=== PATIENT | female | born 1950 | race Caucasian/White ===

== ENCOUNTER 2016-11-10 07:24 | Emergency (ER) | payer MEDICARE, MEDICAID ==
[~2016-11-10] VITALS: Ht 160 cm; Wt 85.0 kg
[2016-11-10 07:25] VITALS: Ht 160 cm; Wt 85.0 kg
--- NOTE | 2016-11-10 08:00 | ERA ---
ER Documentation Chief Complaint Date/Time DATE: 11/10/16 TIME: 07:57 Chief Complaint KAMILLE from Dialysis Complains of SOB HPI This is a 65-year-old female with a history of hemodialysis. She was sent here from the dialysis center after being on the machine for 2 minutes. She was sent because she was having some low oxygen saturations and the patient was complaining of shortness of breath. Patient states the same thing occurred on Thursday when she had dialysis but they continued to complete the therapy. She says over the weekend she feels completely normal and did not have any chest pain or shortness of breath. She states this morning she had no shortness of breath and felt fine on arrival to the dialysis center states that the shortness of breath only started once he connected her to the dialysis machine to begin dialysis. She says this is happened before on a few occasions. Currently says she feels fine. She says she never had any chest pain and has not had a cough or other respiratory symptoms/complaints ROS All systems reviewed and are negative except as per history of present illness. Medications Home Meds Reported Medications Simvastatin (Simvastatin) 20 Mg Tablet, 20 MG PO QHS, #30 TAB 11/10/16 Nitroglycerin* (Nitrostat*) 0.4 Mg Tab.subl, 0.4 MG SL Q5MIN Y for CHEST PAIN, BOTTLE 11/10/16 Aspirin (Aspirin) 81 Mg Chew, 81 MG ORAL DAILY, #30 11/10/16 Albuterol Sulfate* (Proair HFA*) 8.5 Gm Hfa.aer.ad, 2 PUFFS INHALATION Q4H Y for SHORTNESS OF BREATH, #17 11/10/16 Hydralazine Hcl* (Hydralazine Hcl*) 100 Mg Tablet, 50 MG ORAL BID, #90 11/10/16 Discontinued Reported Medications [None ] No Conflict Check 01/11/13 Allergies Allergies: Coded Allergies: Penicillins (Verified Allergy, Unknown, 11/10/16) PMhx/Soc History of Surgery: No Anesthesia Reaction: No Hx Neurological Disorder: No Hx Respiratory Disorders: No Hx Cardiac Disorders: No Hx Psychiatric Problems: No Hx Miscellaneous Medical Probl: Yes (Dialysis) Hx Alcohol Use: No Hx Substance Use: No Hx Tobacco Use: No Smoking Status: Never smoker FmHx Family History: No coronary disease Physical Exam Vitals Vital Signs Date Time Temp Pulse Resp B/P Pulse Ox O2 Delivery O2 Flow Rate FiO2 11/10/16 11:24 79 18 98 21 11/10/16 10:30 98.3 78 20 163/104 100 Room Air 11/10/16 07:55 Nasal Cannula 2.0 11/10/16 07:53 Nasal Cannula 11/10/16 07:25 98.3 79 20 173/106 97 Physical Exam Const: Well-developed, well-nourished Head: Atraumatic, normocephalic Eyes: Normal Conjunctiva, PERRLA, EOMI, normal sclera, no nystagmus ENT: Normal External Ears, Nose and Mouth, moist mucus membranes. Neck: Full range of motion. No meningismus, no lymphadenopathy. Resp: Clear to auscultation bilaterally, no wheezing, rhonchi, rales Cardio: Regular rate and rhythm, no murmurs, S1 S2 present Abd: Soft, non tender x 4, non distended. Normal bowel sounds, no guarding or rebound, no pulsitile abdominal masses or bruits Skin: No petechiae or rashes, no ecchymosis , no maculopapular rash Back: No midline or flank tenderness Ext: No cyanosis, or edema, FROM x 4, normal inspection, neurovascularly intact x 4, right AV shunt with thrill Neur: Awake and alert, STR 5/5 x 4, sensation intact x 4, no focal findings, cerebellum intact Psych: Normal Mood and Affect Result Diagram: 11/10/16 0800 11/10/16 0800 Results 24 hrs Laboratory Tests Test 11/10/16 08:00 White Blood Count 16.810^3/ul Red Blood Count 3.7110^6/ul Hemoglobin 12.8g/dl Hematocrit 41.0% Mean Corpuscular Volume 110.5fl Mean Corpuscular Hemoglobin 34.5pg Mean Corpuscular Hemoglobin Concent 31.2g/dl Red Cell Distribution Width 15.1% Platelet Count 73086^3/UL Mean Platelet Volume 10.2fl Neutrophils % 44.0% Lymphocytes % 15.0% Monocytes % 3.0% Eosinophils % 35.0% Basophils % 3.0% Neutrophils # 7.410^3/ul Lymphocytes # 2.510^3/ul Monocytes # 0.510^3/ul Eosinophils # 5.910^3/ul Basophils # 0.510^3/ul Differential Comment MANUAL DIFF Sodium Level 139mmol/L Potassium Level 4.6mmol/L Chloride Level 99mmol/L Carbon Dioxide Level 26mmol/L Anion Gap 19 Blood Urea Nitrogen 29mg/dl Creatinine 11.03mg/dl Glucose Level 102mg/dl Calcium Level 7.9mg/dl Troponin I 0.048ng/ml Current Medications Medications (Trade) Dose Ordered Sig/Fatmata Route PRN Reason Start Time Stop Time Status Last Admin Dose Admin Albuterol (Proventil 0.083% (Neb)) 5 mg ONCE STAT NEB 11/10/16 11:01 11/10/16 11:02 DC 11/10/16 11:22 Ipratropium [place] (Atrovent 0.02% (Neb)) 0.5 mg ONCE STAT NEB 11/10/16 11:01 11/10/16 11:02 DC 11/10/16 11:22 Procedures/MDM EKG: Rate/Rhythm: Normal sinus rhythm, left axis deviation, left bundle branch block QRS, ST, QT: NORMAL MA, wide QRS, QT] Impression: Abnormal PROCEDURE: Chest x-ray CLINICAL INDICATION: Chest Pain.. TECHNIQUE: One-view frontal. COMPARISON: 01/11/2013 FINDINGS: The cardiac silhouette is normal. No infiltrates are noted. No hilar abnormalities are identified. No pneumothorax or pleural effusions are visualized. Aortic calcification/atherosclerosis is visualized. IMPRESSION: 1. No active cardiopulmonary changes. RPTAT: HGSG .Rojelio Alvarado MD, MD Date Time Electronically viewed and signed by .Rojelio Alvarado MD, on 11/10/2016 08: 25 .G/ CC: ELSA RAINEY DO She states she feels fine. She had a breathing treatment and feels percent better. Patient says she has an inhaler that she uses on occasion. Advised to use it before dialysis. This is the second time in a row the patient's become short of breath at the beginning of dialysis. Not sure the etiology in this is some type of anxiety reaction. Advised her to use her inhaler before dialysis to see if he can deyvi the symptoms. She has not had any recent cough fever or any other complaints. Her white blood count is elevated at 16.3 this may be stress demargination but no clear infection Departure Diagnosis: Primary Impression: Shortness of breath Condition: Stable ELSA RAINEY DO November 10, 2016 08:00
--- NOTE | 2016-11-10 08:25 | RADRPT ---
PROCEDURE: Chest x-ray CLINICAL INDICATION: Chest Pain.. TECHNIQUE: One-view frontal. COMPARISON: 01/11/2013 FINDINGS: The cardiac silhouette is normal. No infiltrates are noted. No hilar abnormalities are identified. No pneumothorax or pleural effusions are visualized. Aortic calcification/atherosclerosis is visualized. IMPRESSION: 1. No active cardiopulmonary changes. RPTAT: HGSG .Rojelio Alvarado MD, MD Date Time Electronically viewed and signed by .Rojelio Alvarado MD, on 11/10/2016 08:25 .G/
[2016-11-10 08:36] LABS: ADD SCAN DIFF NO
[2016-11-10 08:40] LABS: ABNORMAL IP MESSAGE 1; HEMOGLOBIN 12.8 g/dl (12.0-16.0); MEAN CORPUSCULAR HEMOGLOBIN 34.5 pg (29.0-33.0); MEAN CORPUSCULAR HGB CONC 31.2 g/dl (32.0-37.0); MEAN CORPUSCULAR VOLUME 110.5 fl (82.0-101.0); MEAN PLATELET VOLUME 10.2 fl (7.4-10.4); PLATELET COUNT 151 10^3/UL (140-415); RED BLOOD COUNT 3.71 10^6/ul (4.20-5.40); RED CELL DISTRIBUTION WIDTH 15.1 % (11.5-14.5); WHITE BLOOD COUNT 16.8 10^3/ul (4.8-10.8)
[2016-11-10 08:59] LABS: CALCIUM 7.9 mg/dl (8.4-10.2); CREATININE 11.03 mg/dl (0.44-1.00); POTASSIUM 4.6 mmol/L (3.5-5.1)
[2016-11-10] MEDS ORDERED: HYDR100T7 ORAL (08:59)
[2016-11-10] MEDS ORDERED: ASPI81TA3 ORAL (08:59)
[2016-11-10] MEDS ORDERED: ALBU8.5H3 INHALATION (08:59)
[2016-11-10] MEDS ORDERED: SIMV20TA2 PO (09:00)
[2016-11-10] MEDS ORDERED: NIT4 SL (09:00)
[2016-11-10 09:11] LABS: TROPONIN-I 0.048 ng/ml (0.00-0.12)
[2016-11-10 11:00] LABS: BASOPHIL # 0.5 10^3/ul (0.0-0.1); EOSINOPHILS # 5.9 10^3/ul (0.0-0.5); LYMPHOCYTES # 2.5 10^3/ul (0.8-2.9); MONOCYTE # 0.5 10^3/ul (0.3-0.9); NEUTROPHIL # 7.4 10^3/ul (1.6-7.5)
[2016-11-10] MEDS ORDERED: IPRATROPIUM (NEB) 0.5 MG/2.5 ML AMP NEB STA (11:01)
[2016-11-10] MEDS ORDERED: ALBUTEROL 0.083% (NEB) 2.5 MG/3 ML AMP NEB STA (11:01)
[2016-11-10] MEDS ORDERED: ALBU2.5V3 NEB (12:11)
[2016-11-10 12:38] VITALS: BP 144/74; PULSE 90; RESP 20; TEMP 98.3
== END 2016-11-10 12:38 | disposition home or self-care (01) ==
LOC: E/R 07:24
DX: R06.02 Shortness of breath (principal); R40.2252 Coma scale, best verbal response, oriented, at arrival to emergency department; R40.2362 Coma scale, best motor response, obeys commands, at arrival to emergency department; R40.2142 Coma scale, eyes open, spontaneous, at arrival to emergency department; Z79.82 Long term (current) use of aspirin
CPT/HCPCS: 71010; 80048; 84484; 85025; 93005; 94664